=== PATIENT | female | born 1950 | race Caucasian/White ===

== ENCOUNTER → 2019-11-24 14:39 | Outpatient (CLI) | payer MEDICARE, SELFPAY ==
[2019-09-19 11:23] VITALS: BMI 22.9
--- NOTE | 2019-11-24 14:39 | RAD_ITS ---
STUDY: X-RAY - UNILATERAL RIBS ( LEFT ) WITH CHEST REASON FOR EXAM: Female, 68 years old. FALL. PAIN MID LEFT RIBS TECHNIQUE - RIBS: 2 view(s) of the ribs. TECHNIQUE - CHEST: Single PA view of the chest. COMPARISON: None. FINDINGS - RIBS: Nondisplaced fracture involving the anterolateral aspect of the left fourth and fifth ribs. FINDINGS - CHEST: Surgical clips are seen in the left axillary region. Surgical clips are seen overlying both breasts. Surgical clips are also seen overlying the hilar regions bilaterally. Minimal increased markings at the lung bases suggestive of mild scarring. There is no demonstrated pleural abnormality. Metallic density overlying the inferior aspect of the cardiac shadow most likely representing prior biopsy or surgery. Normal mediastinum and gaye. Normal visualized pulmonary arteries. Normal visualized aortic arch and descending thoracic aorta. Normal visualized thoracic spine. Normal visualized ribs, clavicles, and shoulders. There is no demonstrated abnormality of the visualized soft tissue structures of the upper abdomen. RAD/Ribs Uni Min 3V w/PA Chest IMPRESSION: RIBS: Nondisplaced fractures of the left fourth and fifth ribs. CHEST: Normal x-ray examination of the chest. Electronically Signed: Altaf Ballard, at 15:16 EDT , Service support ,
== END ==
PROVIDERS: PCP Internal Medicine; Referring Provider Physician Assistant; Visit Provider Physician Assistant
DX: S22.42XA Multiple fractures of ribs, left side, initial encounter for closed fracture (principal); W19.XXXA Unspecified fall, initial encounter
CPT/HCPCS: 71101; 77386